=== PATIENT | male | born 1980 | race Caucasian/White ===

== ENCOUNTER → 2018-02-17 | Outpatient (CLI) | payer BC, OTHER | LOC: CAT 10:30 | DX: N20.0 Calculus of kidney (principal); R31.9 Hematuria, unspecified; J98.4 Other disorders of lung ==

== ENCOUNTER → 2020-07-20 | Outpatient (CLI) | payer OTHER | LOC: LAB 11:12 | PROVIDERS: ATTEND Neuromusculoskeletal Medicine & OMM | DX: Z20.828 Contact with and (suspected) exposure to other viral communicable diseases (principal) ==